=== PATIENT | male | born 1970 | race Hispanic/Latino ===

== ENCOUNTER 2019-07-29 17:18 | Emergency (ER) | payer SELFPAY, OTHER ==
[2019-07-30 10:41] LABS: SARS-CoV-2 MS2 Positive; SARS-CoV-2 N Gene Negative; SARS-CoV-2 S Gene Negative; SARS-CoV-2 orf1ab Negative
== END 2019-07-29 18:46 | disposition home or self-care (01) ==
LOC: ERS 17:18
DX: Z20.828 Contact with and (suspected) exposure to other viral communicable diseases (principal)
CPT/HCPCS: 87635; 99283; U0003